=== PATIENT | female | born 1965 | race Caucasian/White ===

== ENCOUNTER → 2018-10-27 | Outpatient (CLI) | payer OTHER ==
[2018-10-29 15:06] LABS: HPV 16 Negative (Negative); HPV 18 Negative (Negative); HPV OTHER HR TYPES Negative (Negative)
[2018-10-30 03:07] LABS: CHLAMYDIA TRACHOMATIS, NAA Negative (Negative); NEISSERIA GONORRHOEAE, NAA Negative (Negative)
== END | disposition home or self-care (01) ==
LOC: LAB SHORT 13:17 → LAB 13:17
PROVIDERS: Nurse Practitioner Family
DX: Z01.419 Encounter for gynecological examination (general) (routine) without abnormal findings (principal)
CPT/HCPCS: 87491; 87591; 87624; G0123

== ENCOUNTER 2021-01-29 11:50 | Emergency (ER) | payer OTHER ==
[~2021-01-29] VITALS: Ht 162.6 cm; Wt 61.2 kg
[2021-01-29] MEDS ORDERED: EUTHYROX75 MC1 PO (12:05)
[2021-01-29] MEDS ORDERED: Adderall Xr 1010 MG PO (12:05)
[2021-01-29] MEDS ORDERED: OXYC5 PO (13:17)
[2021-01-29] MEDS ORDERED: Bactrim Ds Tab1 EACH PO (13:17)
== END 2021-01-29 13:26 | disposition home or self-care (01) ==
LOC: ER 11:50
DX: J02.9 Acute pharyngitis, unspecified (principal); R68.84 Jaw pain; J44.9 Chronic obstructive pulmonary disease, unspecified; Z79.899 Other long term (current) drug therapy
CPT/HCPCS: 99282; A9270